=== PATIENT | male | born 1990 | race Caucasian/White ===

== ENCOUNTER 2018-06-27 18:40 | Emergency (ER) | payer SELFPAY ==
[~2018-06-27] VITALS: Ht 172.7 cm; Wt 98.4 kg
[2018-06-27 18:52] VITALS: BP 131/81
--- NOTE | 2018-06-27 18:57 | NUR ---
PT TRIAGED AND SENT TO ED LOBBY, EDMD AWARE OF PT STATUS.
--- NOTE | 2018-06-27 21:00 | NUR ---
PATIENT LEFT WITHOUT BEING SEEN BY DR. PATEL. NO FURTHER CARE PROVIDED FOR PATIENT.
== END 2018-06-27 21:00 | disposition left against medical advice (07) ==
LOC: MED 18:40
DX: S01.81XA Laceration without foreign body of other part of head, initial encounter (principal); Z53.21 Procedure and treatment not carried out due to patient leaving prior to being seen by health care provider; W22.8XXA Striking against or struck by other objects, initial encounter; Y93.89 Activity, other specified; Y92.89 Other specified places as the place of occurrence of the external cause; Y99.8 Other external cause status